=== PATIENT | female | born 1965 | race American Indian/Alaskan Native ===

== ENCOUNTER 2018-04-07 14:08 | Outpatient (CLI) | payer OTHER | END 2018-04-07 14:09 | disposition home or self-care (01) | LOC: LABHHL 14:08 | PROVIDERS: ATTEND Surgery | DX: C50.911 Malignant neoplasm of unspecified site of right female breast (principal) | CPT/HCPCS: 88305; 88342; 88361 ==

== ENCOUNTER 2018-05-09 12:37 | Day surgery (SDC) | payer MEDICAID ==
[2018-05-09] MEDS ORDERED: ANCEF/STERILE WATER 2 GM/20 ML 2 GM/20 ML SYRINGE IV SCH (13:26)
[2018-05-09] MEDS ORDERED: LACTATED RINGERS 1,000 ML ONE (14:17)
[2018-05-09] MEDS ORDERED: NARCAN 0.4 MG/1 ML IV PRN (14:28)
[2018-05-09] MEDS ORDERED: DEMEROL IV PRN (14:28)
[2018-05-09] MEDS ORDERED: DILAUDID IV PRN ×2 (14:28)
[2018-05-09] MEDS ORDERED: TORADOL IV PRN (14:28)
--- NOTE | 2018-05-09 14:28 | Anesthesia Consultation ---
Anesthesia Consult and Med Hx Date of service: 05/09/18 - Airway Anesthetic Teeth Evaluation: Poor, Chipped ROM Head & Neck: Adequate Mental/Hyoid Distance: Adequate Mallampati Class: Class III Intubation Access Assessment: Probably Good - Pulmonary Exam CTA: Yes - Cardiac Exam Cardiac Exam: RRR - Pre-Operative Health Status ASA Pre-Surgery Classification: ASA2 Proposed Anesthetic Plan: General - Pre-Anesthesia Comment Pre-Anesthesia Comments: patient smokes 1/3 pack of cigarettes per day. Drinks one bottle of wine per day - Pulmonary Hx Smoking: Yes (6CIG/DAY FOR OVER 20 YEARS) - Central Nervous System Hx Psychiatric Problems: No - Hematic Hx Anemia: Yes - Other Systems Hx Alcohol Use: Yes (WINE/NIGHTLY) Hx Substance Use: No Hx Cancer: Yes
--- NOTE | 2018-05-09 14:28 | Anesthesia Day of Surgery ---
Anesthesia Day of Surgery - Day of Surgery Patient Examined: Yes Patient H&P Reviewed: Yes Patient is NPO: Yes
[2018-05-09] MEDS ORDERED: HEPARIN 10,000 UNITS/10 ML ONE (14:45)
[2018-05-09] MEDS ORDERED: MARCAINE 0.25% INFILTRATI ONE (14:45)
[2018-05-09] MEDS ORDERED: NACL 0.9% 100 ML ONE (14:46)
[2018-05-09] MEDS ORDERED: XYLOCAINE 1% 20 mL ONE (14:46)
[2018-05-09] MEDS ORDERED: SUBLIMAZE ONE (14:58)
[2018-05-09] MEDS ORDERED: ZOFRAN IV NR (15:00)
[2018-05-09] MEDS ORDERED: VERSED IV NR (15:00)
[2018-05-09] MEDS ORDERED: LACTATED RINGERS 1,000 ML IV SCH (15:00)
[2018-05-09] MEDS ORDERED: DIPRIVAN 10 MG/ML IV ONE ×2 (15:02→15:06)
[2018-05-09] MEDS ORDERED: XYLOCAINE MPF 2% ONE (15:22)
[2018-05-09] MEDS ORDERED: ePHEDrine 50 MG/5 ML-0.9% NACL IV ONE (15:22)
[2018-05-09] MEDS ORDERED: DECADRON ONE (15:22)
[2018-05-09] MEDS ORDERED: NACL 0.9% IR ONE (15:23)
[2018-05-09] MEDS ORDERED: HEPARIN 10,000 UNITS/10 ML IV ONE (15:24)
[2018-05-09] MEDS ORDERED: NACL 0.9% IV ONE (15:25)
[2018-05-09] MEDS ORDERED: XYLOCAINE 1% 20 mL INFILTRATI ONE (15:25)
[2018-05-09] MEDS ORDERED: REGLAN ONE (16:14)
[2018-05-09] MEDS ORDERED: ZOFRAN ONE (16:14)
--- NOTE | 2018-05-09 16:34 | Operative Report ---
Operative Report Operative Report: Date of operation: 05/09/18 Reoperative diagnosis: Right-sided breast cancer Postoperative diagnosis: Same as above Procedure performed: Placement of left subclavian vein Port-A-Cath with ultrasound guidance, fluoroscopy Surgeon: Anurag Figueroa DO Anesthesia: Gen., local Findings: On intraoperative CXR - good placement of port and no PTX EBL: 20 mL Complications: none Disposition: stable to PACU HPI and indication: Patient is a 53-year-old female who has recently been diagnosed with right-sided breast cancer. The patient is seen by Dr. Newby for breast surgery follow up and Dr. Ward(oncology) and deemed a candidate for chemotherapy. All of the risks associated with the procedure were discussed with the patient including but not limited to pneumothorax, infection, bleeding , malpositioned port, injury to other structures. The patient understands and all questions were answered. Consent was signed and placed on chart. Procedure in detail: The patient was identified in the preoperative area, taken back to operating room, placed on operating table in supine position. After anesthesia was induced both arms were tucked and upper chest and neck were prepped and draped in usual sterile fashion. A timeout was performed. The was placed in Trendelenburg position. Local anesthetic was infiltrated into the skin at the intended puncture site. The left subclavian vein was identified on ultrasound and seen as compressible. This was accessed on the first stick. There was return of dark red, nonpulsatile blood. The wire was threaded however there was resistance and the wire could not be advanced even under fluoroscopy. Therefore, the wire and needle were withdrawn and pressure held at the puncture site. A second attempt was made, and the subclavian vein on the left was accessed on the first stick during this attempt. There was return of dark red, nonpulsatile blood. A Glidewire was then advanced through the needle under fluoroscopy without resistance and positioning confirmed in the right atrium. The needle was then removed. Using a 15 blade, an incision was made in the LEFT upper chest and dissection carried down through the skin and subcutaneous tissue using Bovie electrocautery. Hemostasis was achieved along the way. A pocket for the port was then created bluntly and with electrocautery. The catheter was flushed and tunneled from the pocket to the wire. A breakaway catheter/dilator sheath then inserted over the wire under fluoroscopy, and the wire and dilator removed. The catheter was then inserted through the breakaway catheter which was then removed. The catheter sat flush under the skin. Using continuous fluoroscopy, the catheter was pulled back until the tip was visualized in the right atrium. The catheter was then cut to size and the port attached in the usual fashion. The port was then sutured into place to the pre-pectoral fascia using 2-0 Vicryl interrupted sutures. The wound was irrigated and hemostasis ensured. The port was tested with heparinized saline and there was return of blood and it flushed easily. The port was then instilled with 3000 units of heparin. The wound was once again irrigated and hemostasis ensured. The deep dermal layer was then closed with interrupted 3-0 Vicryl stitches. The skin incisions were closed with 4-0 Monocryl subcuticular stitches and skin glue. Intraoperative chest x-ray did show good positioning of the port, without evidence of pneumothorax. At the end of the case, all sponge, instrument, sharp counts were correct 2. The patient was awoken from anesthesia and taken to PACU in stable condition.
--- NOTE | 2018-05-09 16:38 | Short Stay Summary ---
Short Stay Documentation Date of service: 05/09/18 - History Principal diagnosis: right breast cancer H&P: obtained from office - Allergies and Medications Current Medications: Allergies No Known Allergies Allergy (Verified 05/08/18 10:48) Home Medications Medication Instructions Recorded Confirmed Last Taken Type No Known Home Medications [No 05/08/18 05/08/18 Unknown History Reported Home Medications] Active Medications Hydromorphone HCl (Dilaudid) 0.5 mg IV Q10MIN PRN PRN Reason: Pain , Severe (7-10) Stop: 05/09/18 20:00 Hydromorphone HCl (Dilaudid) 0.25 mg IV Q10MIN PRN PRN Reason: Pain, Moderate (4-6) Stop: 05/09/18 20:00 Cefazolin Sodium (Ancef/Sterile Water 2 Gm/20 Ml) 2 gm in 20 mls @ 40 mls/hr IV ONCE TARUN Stop: 05/09/18 23:00 Lactated Ringer's (Lactated Ringers) 1,000 mls @ 100 mls/hr IV DIRECT TARUN Ketorolac Tromethamine (Toradol) 15 mg IV ONCE PRN PRN Reason: Pain, Mild (1-3) Meperidine HCl (Demerol) 25 mg IV ONCE PRN PRN Reason: Shivering Midazolam HCl (Versed) 2 mg IV PREOP NR Stop: 05/09/18 23:59 Last Admin: 05/09/18 14:33 Dose: 2 mg Naloxone HCl (Narcan 0.4 Mg/1 Ml) 0.1 mg IV Q2MIN PRN PRN Reason: Res Rate </= 8 or 02 SAT < 92% Ondansetron HCl (Zofran) 4 mg IV PREOP NR Stop: 05/09/18 18:00 Last Admin: 05/09/18 14:33 Dose: 4 mg - Brief post op/procedure progress note Date of procedure: 05/09/18 Pre-op diagnosis: right breast cancer Post-op diagnosis: same Procedure: placement of left subclavian vein port a cath with ultrasound guidance, fluoroscopy. Anesthesia: GETA, local Findings: good placement of port on post op CXR, no PTX Surgeon: RANDI VELIZ Estimated blood loss: minimal Pathology: none Condition: stable - Hospital course Hospital course: The patient was observed in the PACU and discharged to home in stable condition once criteria was met. - Disposition Condition at discharge: Good Disposition: DC-01 TO HOME OR SELFCARE Short Stay Discharge Plan Activity: other (do not elevate left arm overhead for the next 3-5 days.) Diet: regular Wound: open to air (may shower tomorrow, pat incisions dry, do not scrub. Do not peel skin glue. Do not submerge incisions) Additional Instructions: 1. May return to work on 05/11/18 2. Please follow up with Dr. Veliz if you do not have a scheduled visit to see Dr. Newby in the next 2 weeks. 3. Call surgeon's office if you have fever>100.4, drainage or redness around the incisions. Follow up with: FANNIE CONDE MD [Primary Care Provider] - 7 Days RANDI VELIZ DO [Staff Physician] - 7 Days
[2018-05-09 18:44] VITALS: BP 126/69
--- NOTE | 2018-05-10 09:35 | Fluoroscopy Report ---
FLUOROSCOPY CENTRAL VENOUS DEVICE PLACEMENT HISTORY: Breast cancer One fluoroscopic image of the precordial region and AP view of the chest are presented which demonstrate placement of a left subclavian Xjbfid-x-Eewk which terminates in the superior right atrium. The lungs are well-aerated. No opacity, pleural fluid or pneumothorax. The cardiac shadow is borderline in size. The bony structures are unremarkable. IMPRESSION: Left Cvjnxv-b-Iply placement as described. No pneumothorax.
== END 2018-05-09 17:20 | disposition home or self-care (01) ==
LOC: OR 12:37
PROVIDERS: ATTEND Surgery
DX: C50.411 Malignant neoplasm of upper-outer quadrant of right female breast (principal); K50.90 Crohn's disease, unspecified, without complications; G43.909 Migraine, unspecified, not intractable, without status migrainosus; F41.9 Anxiety disorder, unspecified; F32.9 Major depressive disorder, single episode, unspecified; F17.210 Nicotine dependence, cigarettes, uncomplicated; Z90.711 Acquired absence of uterus with remaining cervical stump
CPT/HCPCS: 36561; 76937; 77001; C1769; C1788; J0690; J1100; J1644; J2250; J2405; J2704; J2765; J3010; J7120

== ENCOUNTER 2018-05-16 13:48 | Outpatient (CLI) | payer MEDICAID ==
--- NOTE | 2018-05-18 09:42 | Magnetic Resonance Report ---
BILATERAL BREAST MRI WITHOUT AND WITH CONTRAST: 05/16/18 13:48:00 CLINICAL: Newly diagnosed right breast cancer. Status post right ultrasound guided needle biopsy of a mass at 12 o'clock 2 cm from the nipple on 04/07/18 with pathologic diagnosis of invasive mammary carcinoma with lobular features, Buna grade III. On the same day, a right axillary lymph node biopsy was performed hand is positive for metastatic carcinoma. COMPARISON:03/24/18 and 04/07/18 [facility] mammograms. TECHNIQUE: Axial 1.0-mm T1 without, axial high resolution 2.0-mm T2 and axial 1.0-mm dynamic Vibrant high-resolution postcontrast T1 fat saturation sequences on a 1.5 Meenakshi magnet. The examination was performed with an 8 channel dedicated [employer] breast coil. Post processing with CAD and subtraction was performed on an [employer] workstation. 15.0 cc of Multihance was injected without incident for the contrast portion of the exam. Consent was obtained prior to the administration of the contrast. FINDINGS: Right: Marked background parenchymal enhancement. The known cancer is an irregular enhancing mass at 12 o'clock 3.9 cm from the nipple measuring 2.9 x 2.4 x 2.0 cm. It demonstrates heterogeneous enhancement with mixed kinetics, 100% peak enhancement, 17% type I persistent, 72% type II plateau and 11% type III washout enhancement patterns. Numerous additional highly suspicious masses are identified throughout the breast and the known cancer is surrounded by non-Mass enhancement which measures at least 4.0 x 3.5 x 4.2 cm. A 6.5 mm x 5.5 mm x 5.0 m mass at 6 o'clock 7 cm from the nipple demonstrates heterogeneous enhancement with mixed kinetics, 170% peak enhancement, 85% type II plateau and 4% type III washout. Several right level II axillary lymph nodes have abnormal morphology with minimal central fat. The 2 largest measure 1.2 and 1.0 cm. In addition, a suspicious right internal mammary lymph node measures approximately 1 cm and demonstrates avid enhancement. Left: Mild background parenchymal enhancement. No mass or suspicious enhancement of the left breast. No suspicious left axillary or left internal mammary lymph nodes. IMPRESSION: 1. Multicentric right breast cancer with a dominant 3 cm mass at 12 o'clock plus additional suspicious surrounding non-Mass enhancement and too numerous to count additional highly suspicious masses including one at 6 o'clock. 2. Biopsy proven right axillary kris metastasis and a suspicious right internal mammary lymph node by this MRI. 3. Negative left breast. RIGHT BI-RADS 6 -- Known Cancer LEFT BI-RADS 1 -- Negative
== END 2018-05-16 13:49 | disposition home or self-care (01) ==
LOC: SPVIMAG 13:48
PROVIDERS: ATTEND Surgery
DX: C50.411 Malignant neoplasm of upper-outer quadrant of right female breast (principal); F17.210 Nicotine dependence, cigarettes, uncomplicated
CPT/HCPCS: A9577; C8908; 77059

== ENCOUNTER 2018-05-18 07:32 | Outpatient (CLI) | payer MEDICAID ==
--- NOTE | 2018-05-18 13:09 | PET Report ---
PET/CT:05/18/18 07:32:00 CLINICAL: Newly diagnosed right breast cancer. RADIOPHARMACEUTICAL: 15.0mCi F18-FDG. COMPARISON: MRI Breast Bilateral 05/16/18 TECHNIQUE- Following intravenous injection of F-18 FDG and an approximately 60 minute uptake period, CT and PET images from the mid skull to the upper thighs were acquired with the patient in the fasted state. No contrast was administered. The CT protocol used for this PET CT study is designed for attenuation correction and anatomic localization of PET abnormalities. This taste tester CT is not desired to produce and cannot replace, lzewo-gr-jks-art diagnostic CT scans with specific imaging protocols for different body parts and indications. Plasma glucose the time of this test: 94g/dl. The standardized uptake values (SUV) are normalized to patient body weight and indicate the highest activity concentration (SUV max) in a given disease site. FINDINGS: Brain--Physiologic FDG uptake in the visualized regions of the brain. Neck--Physiologic FDG uptake in mucosal structures. No mass or lymphadenopathy. Chest--Physiologic FDG uptake in mediastinal blood pool and myocardium. Multifocal FDG uptake in the right breast with SUV 8.6 correlates with the known right breast cancer. There is a biopsy clip at 12 o'clock. A distinct mass is not discernible by CT only. 2 additional foci of uptake in the right breast with SUV 5.0. Lungs--No abnormal uptake. No pulmonary nodule or mass. Pleura/pericardium--No abnormal uptake. Thoracic nodes--Abnormal FDG uptake in a 1.2 cm right level II axillary lymph node with SUV 4.2. An adjacent 1 cm suspicious lymph node with SUV 2.4. Numerous additional right axillary and subpectoral lymph nodes with no abnormal FDG uptake. Similar non-FDG avid subcentimeter left axillary and left subpectoral lymph nodes. No internal mammary lymphadenopathy and no suspicious FDG uptake in right internal mammary lymph nodes. Hepatobiliary--No abnormal uptake. Liver background SUV mean, as a reference for comparing FDG studies, is 3.0 . No liver mass. Spleen--No abnormal uptake. Pancreas--No abnormal uptake. Adrenal Glands--No abnormal uptake. Kidneys/Ureters/Bladder--No abnormal uptake. Abdominopelvic Nodes--No abnormal uptake. Bowel/Peritoneum/Mesentery--No abnormal uptake. Pelvic organs--No abnormal uptake. Bones/Soft Tissues--No abnormal uptake and no suspicious bone lesions. IMPRESSION-1. Multifocal FDG uptake in the right breast consistent with known multicentric right breast cancer. 2. FDG uptake in 2 right axillary lymph nodes is suspicious for right axillary kris metastasis. Numerous bilateral subcentimeter axillary and subpectoral lymph nodes are non-FDG avid and probably benign. No right internal mammary lymphadenopathy or suspicious FDG uptake to correlate with a suspected right internal mammary kris metastasis on MRI. I consider this study as being more reliable for excluding internal mammary kris metastasis. 3. No evidence of hepatic or skeletal metastasis.
== END 2018-05-18 07:33 | disposition home or self-care (01) ==
LOC: PET 07:32
PROVIDERS: ATTEND Internal Medicine Hematology & Oncology
DX: C50.411 Malignant neoplasm of upper-outer quadrant of right female breast (principal); F17.210 Nicotine dependence, cigarettes, uncomplicated; D64.9 Anemia, unspecified; G43.909 Migraine, unspecified, not intractable, without status migrainosus; F32.9 Major depressive disorder, single episode, unspecified; Z90.711 Acquired absence of uterus with remaining cervical stump; Z90.710 Acquired absence of both cervix and uterus
CPT/HCPCS: 78815; 82962; A9552

== ENCOUNTER 2018-05-22 07:21 | Outpatient (CLI) | payer MEDICAID ==
--- NOTE | 2018-05-22 09:48 | Magnetic Resonance Report ---
MRI scan of brain without and with IV contrast: History: Malignant neoplasm of breast. Technique: Multiplanar, multisequence images were obtained. Findings: No evidence of restricted diffusion. No evidence of abnormal enhancement. Ventricles are normal in size and midline in location. No evidence of acute ischemic, hemorrhage or mass. No extra-axial fluid collection. Normal brainstem and cerebellum. Periventricular focal areas of increased signals intensity on flair without restricted diffusion. Normal visualized sinuses and mastoid air cells. Impression: No acute intracranial abnormality. Small vessel ischemic changes.
== END 2018-05-22 07:22 | disposition home or self-care (01) ==
LOC: MRI 07:21
PROVIDERS: ATTEND Internal Medicine Hematology & Oncology
DX: C50.911 Malignant neoplasm of unspecified site of right female breast (principal); D64.9 Anemia, unspecified; Z90.710 Acquired absence of both cervix and uterus; F17.219 Nicotine dependence, cigarettes, with unspecified nicotine-induced disorders
CPT/HCPCS: 70553; A9577